=== PATIENT | female | born 1980 | race Caucasian/White ===

== ENCOUNTER 2020-03-17 17:10 | Emergency (ER) | payer OTHER ==
--- NOTE | 2020-03-17 19:09 | ER Document Report ---
ED Medical Screen (RME) - General Stated Complaint: CHEST PAINS Time Seen by Provider: 03/17/20 18:58 Notes: Patient is a 39-year-old female who presents to the emergency department with a chief complaint of chest pain. Patient states that her symptoms started last ni ght. Patient is currently on control. She denies any shortness of breath, but states, "something just does not feel right." Patient states that she can feel her "heart racing." Patient states that she felt this before, but never had it checked. Exam: Tachycardic with heart rate in the 130s. S1, S2. I have greeted and performed a rapid initial assessment of this patient. A comprehensive ED assessment and evaluation of the patient, analysis of test results and completion of medical decision making process will be conducted by an additional ED providers. - Related Data Allergies/Adverse Reactions: No Known Allergies Allergy (Verified 03/17/20 18:58) Physical Exam - Vital signs Vitals: Temp Pulse Resp BP Pulse Ox 98.8 F 131 H 18 156/75 H 98 03/17/20 17:22 03/17/20 17:22 03/17/20 17:22 03/17/20 17:22 03/17/20 17:22 Course - Vital Signs Vital signs: Temp Pulse Resp BP Pulse Ox 98.8 F 131 H 18 156/75 H 98 03/17/20 17:22 03/17/20 17:22 03/17/20 17:22 03/17/20 17:22 03/17/20 17:22
--- NOTE | 2020-03-17 19:29 | RADIOLOGY REPORT (SQ) ---
EXAM DESCRIPTION: CHEST SINGLE VIEW IMAGES COMPLETED DATE/TIME: 03/17/2020 7:22 pm REASON FOR STUDY: chest pain COMPARISON: None. EXAM PARAMETERS: NUMBER OF VIEWS: One view. TECHNIQUE: Single frontal radiographic view of the chest acquired. RADIATION DOSE: NA LIMITATIONS: None. FINDINGS: LUNGS AND PLEURA: No opacities, masses or pneumothorax. No pleural effusion. MEDIASTINUM AND HILAR STRUCTURES: No masses. Contour normal. HEART AND VASCULAR STRUCTURES: Heart normal in size. Normal vasculature. BONES: No acute findings. HARDWARE: None in the chest. OTHER: No other significant finding. IMPRESSION: 1. NO ACUTE RADIOGRAPHIC FINDING IN THE CHEST. TECHNICAL DOCUMENTATION: JOB ID: [id number] [employer]- All Rights Reserved Reading location - IP/workstation name: [email or web address]
[2020-03-17] MEDS ORDERED: DIAZEPAM 2 MG TABLET PO ONE (19:42)
[2020-03-17] MEDS ORDERED: NORMAL SALINE 1000 ML 1,000 ML IV ONE (19:42)
--- NOTE | 2020-03-17 19:48 | EKG REPORT ---
SEVERITY:- OTHERWISE NORMAL ECG - SINUS TACHYCARDIA : Confirmed by: Flaquita Kumar MD 17-Mar-2020 19:47:06
[2020-03-17 20:04] LABS: ABSOLUTE BASOPHILS # (AUTO) 0.1 10^3/uL (0.0-0.2); ABSOLUTE LYMPHOCYTES (AUTO) 2.5 10^3/uL (0.5-4.7); ABSOLUTE MONOCYTES (AUTO) 0.7 10^3/uL (0.1-1.4); ABSOLUTE NEUT (AUTO) 11.4 10^3/uL (1.7-8.2); BASOPHILS % (AUTO) 0.3 % (0-2); EOSINOPHILS % (AUTO) 0.2 % (0-6); HEMATOCRIT 43.4 % (36.0-47.0); HEMOGLOBIN 14.8 g/dL (12.0-15.5); LYMPHOCYTES % (AUTO) 17.2 % (13-45); MEAN CORPUSCULAR VOLUME 91 fl (80-97); MONOCYTES % (AUTO) 4.5 % (3-13); PLATELET COUNT 452 10^3/uL (150-450); RED BLOOD COUNT 4.76 10^6/uL (3.72-5.28); RED CELL DISTRIBUTION WIDTH 12.4 % (11.5-14.0); SEGMENTED NEUTROPHILS % (AUTO) 77.8 % (42-78); TOTAL CELLS COUNTED % (AUTO) 100 %; WHITE BLOOD COUNT 14.6 10^3/uL (4.0-10.5)
[2020-03-17 20:19] LABS: ALBUMIN 5.1 g/dL (3.5-5.0); ALKALINE PHOSPHATASE 76 U/L (38-126); ANION GAP 11 (5-19); ASPARTATE AMINO TRANSFERASE 22 U/L (14-36); BILIRUBIN,TOTAL 0.7 mg/dL (0.2-1.3); BLOOD UREA NITROGEN 10 mg/dL (7-20); CALCIUM 10.1 mg/dL (8.4-10.2); CARBON DIOXIDE 23 mmol/L (22-30); CHLORIDE 103 mmol/L (98-107); GLUCOSE 122 mg/dL (75-110); POTASSIUM 4.2 mmol/L (3.6-5.0); TOTAL PROTEIN 8.7 g/dL (6.3-8.2)
--- NOTE | 2020-03-17 20:46 | RADIOLOGY REPORT (SQ) ---
CLINICAL INDICATION: eval PE?. Chest pain. Tachycardia. TECHNIQUE: CT arteriography was obtained of the chest with multiplanar MIP and/or 3-D angiographic reconstructions. This exam was performed according to our departmental dose-optimization program, which includes automated exposure control, adjustment of the mA and/or kV according to patient size and/or use of iterative reconstruction techniques. COMPARISON: None. CORRELATION: Chest radiography today. FINDINGS: Motion artifact contrast bolus. Average Hounsfield unit measurement within main pulmonary artery segment of 234. Artifact from venous opacification. There is no evidence of pulmonary embolus. Peripheral branch vessels are not well seen due to motion. Thoracic aorta is of normal caliber. The heart is of normal size. No pericardial effusion. No bulky mediastinal adenopathy. The lungs are grossly clear. No consolidation or edema. No effusion or pneumothorax. Detail obscured by motion Visualized abdominal contents are unremarkable. Visualized bones are unremarkable. IMPRESSION: Imaging is degraded by patient motion, with resultant artifact. The best possible images were obtained. No evidence of pulmonary embolus. .
--- NOTE | 2020-03-17 21:00 | ER Document Report ---
ED Cardiac - General Chief Complaint: Chest Pressure Stated Complaint: CHEST PAINS Time Seen by Provider: 03/17/20 18:58 Notes: Patient is a 39-year-old female who presents to the emergency department with a chief complaint of chest pain. Patient states that her symptoms started last night. Patient is currently on control. She denies any shortness of breath, but states, "something just does not feel right." Patient states that she can feel her "heart racing." Patient states that she felt this before, but never had it checked. Patient denies any abdominal pain, dysuria, pelvic pain, shortness of breath, or difficulty breathing. - Related Data Allergies/Adverse Reactions: No Known Allergies Allergy (Verified 03/17/20 18:58) Home Medications: lo estern / started 2 months ago. xanax Past Medical History - General Information source: Patient - Social History Smoking Status: Never Smoker Chew tobacco use (# tins/day): No Frequency of alcohol use: Social Drug Abuse: None Family History: Reviewed & Not Pertinent Patient has homicidal ideation: No Review of Systems - Review of Systems Notes: REVIEW OF SYSTEMS: CONSTITUTIONAL : Denies recent illness. Denies recent unintentional weight loss. Denies fever, chills, or sweats. EENT: Denies eye, ear, throat, or mouth pain, discharge, or symptoms. Denies nasal or sinus congestion. CARDIOVASCULAR: See HPI. RESPIRATORY: Denies shortness of breath, cough, congestion, difficulty breathing, or wheezing. GASTROINTESTINAL: Denies nausea, vomiting, and diarrhea. Denies abdominal pain. Denies constipation. GENITOURINARY: Denies difficulty urinating, burning, blood in urine, urgency or frequency. MUSCULOSKELETAL: Denies neck and back pain. Denies joint pain or swelling. SKIN: Denies rash, itchiness, or lesions HEMATOLOGIC : Denies easy bruising or bleeding. LYMPHATIC: Denies swollen, painful, enlarged glands. NEUROLOGICAL: Denies no numbness or tingling denies weakness. Denies headache. Denies altered mental status. Denies alteration in speech. PSYCHIATRIC: See HPI. All other systems reviewed and negative. Physical Exam - Vital signs Vitals: Temp Pulse Resp BP Pulse Ox 98.8 F 131 H 18 156/75 H 98 03/17/20 17:22 03/17/20 17:22 03/17/20 17:22 03/17/20 17:22 03/17/20 17:22 - Notes Notes: PHYSICAL EXAMINATION: GENERAL: Appears well, healthy, well-nourished, no acute distress. HEAD: Normocephalic, atraumatic. EYES: PERRL, conjunctiva normal, all extraocular movements intact, sclera nonicteric ENT: Moist mucous membranes. NECK: Supple, no noticeable swelling, redness, rash. Normal range of motion. LUNGS: Equal breath sounds bilaterally and clear to auscultation. No wheezes rales or rhonchi. CARDIOVASCULAR: S1-S2, tachycardic, regular rhythm. Radial pulses 2+, normal. ABDOMEN: Normoactive bowel sounds. Soft, nontender, no guarding, no rebound tenderness, and no masses palpated. EXTREMITIES: Normal strength and range of motion, no pitting or edema. No cyanosis. NEUROLOGICAL: Moves all extremities upon command. Strength 5/5 in all extremities. PSYCH: Normal mood, normal affect. SKIN: Warm, dry. No rash, lesions, ulcerations noted. Normal skin turgor. Course - Re-evaluation Re-evalutation: 03/18/20 22:49 Hematology shows a nonspecific leukocytosis of 14,600. Chemistries are unremarkable other than elevated protein and albumin, most likely due to dehydration. hCG is negative. Troponin is negative. Have low suspicion for myocardial infarction. CTA of the chest and chest x-ray are both unremarkable. No pneumonia or pulmonary emboli noted. Patient does states she feels better after receiving some Valium. Had a lengthy conversation with the patient in regards to her anxiety. She then told me that she was prescribed Zoloft and Vistaril, but has not started them. Her primary care provider gave her these medications. Advised her that would be important to start these medications, as the most likely cause of her chest pain is anxiety. We will also start her on medications for GERD. She is in agreement with this plan. Heart rate has come down significantly. Follow-up precautions were given. Verbal discharge ins tructions were given to the patient. They verbalized understanding. They are stable for discharge. - Vital Signs Vital signs: Temp Pulse Resp BP Pulse Ox 97.4 F 110 H 16 148/79 H 97 03/17/20 23:15 03/17/20 23:15 03/17/20 23:15 03/17/20 23:15 03/17/20 23:15 - Laboratory Result Diagrams: 03/17/20 19:35 03/17/20 19:35 Laboratory results interpreted by me: 03/17/20 03/17/20 03/17/20 19:35 19:35 21:08 WBC 14.6 H Plt Count 452 H Absolute Neuts (auto) 11.4 H Glucose 122 H Total Protein 8.7 H Albumin 5.1 H Urine Ketones 20 H - EKG Interpretation by Me Additional EKG results interpreted by me: 03/17/20 Sinus tachycardia. Rate 138; WY 90; QRS 78; QT 292; QTc 443. No ST elevations or depressions noted. Discharge - Discharge Clinical Impression: Anxiety, Dehydration Chest pain Qualifiers: Chest pain type: unspecified Qualified Code(s): R07.9 - Chest pain, unspecified GERD (gastroesophageal reflux disease) Qualifiers: Esophagitis presence: without esophagitis Qualified Code(s): K21.9 - Gastro- esophageal reflux disease without esophagitis Condition: Stable Disposition: HOME, SELF-CARE Additional Instructions: You were seen today in the emergency department for chest pain. Your work-up showed that you were dehydrated. Patient you are drinking plenty of fluids. Please follow-up with your primary care provider in regards to this visit. As far as your anxiety goes, please follow-up with mental health. See if you can be placed on a medication to help you with your anxiety consistently. Take Vistaril as needed, as this is nonaddictive. Take your Zoloft. Prescriptions: Famotidine [Pepcid 20 mg Tablet] 20 mg PO BID #60 tablet
[2020-03-17] MEDS ORDERED: METOCLOPRAMIDE HCL ORAL SOLN 10 MG/10 ML UDCUP PO ONE (21:06)
[2020-03-17] MEDS ORDERED: MAG HYDROX/AL HYDROX/SIMETH SUSP 30 ML UDCUP PO ONE (21:06)
[2020-03-17] MEDS ORDERED: LIDOCAINE 2% VISCOUS SOLN 15 ML UDCUP PO ONE (21:06)
[2020-03-17 21:26] LABS: APPEARANCE,URINE CLEAR; BILIRUBIN,URINE NEGATIVE (NEGATIVE); COLOR,URINE STRAW; GLUCOSE, URINE NEGATIVE (NEGATIVE); KETONES,URINE 20 mg/dL (NEGATIVE); LEUKOCYTE ESTERASE,URINE NEGATIVE (NEGATIVE); NITRITE,URINE NEGATIVE (NEGATIVE); PROTEIN,URINE NEGATIVE (NEGATIVE); UROBILINOGEN,URINE NEGATIVE mg/dL (<2.0)
[2020-03-17 21:28] LABS: URINE SPECIFIC GRAVITY > 1.060
[2020-03-17] MEDS ORDERED: FAMOTIDINE 20 MG TABLET PO ONE (23:00)
[2020-03-18 06:14] VITALS: BP 148/79
== END 2020-03-17 23:15 | disposition home or self-care (01) ==
LOC: ER 17:10
DX: R07.9 Chest pain, unspecified (principal); F41.9 Anxiety disorder, unspecified; E86.0 Dehydration; K21.9 Gastro-esophageal reflux disease without esophagitis; R00.0 Tachycardia, unspecified; Z79.899 Other long term (current) drug therapy
CPT/HCPCS: 93005; 99285; 96360; 96361; 36415; 84703; 85025; 80053; 81001; 84484; 71045; 71275; 93010; J3490 ×2; J7030